=== PATIENT | female | born 1995 | race African-American/Black ===

== ENCOUNTER 2016-04-23 21:42 | Emergency (ER) | payer OTHER ==
[2016-04-23 22:06] VITALS: BP 160/60; PULSE 98; TEMP 98.4; BMI 39.6
--- NOTE | 2016-04-23 22:33 | PDOC ---
History of Present Illness <Dontae,Tutu - Last Filed: 04/23/16 23:59> - General History Source: Patient, Family (Mother), Other (Girlfriend) Exam Limitations: No Limitations - History of Present Illness Initial Comments: 04/23/16 23:49 The patient is a 20 year old female, with no significant past medical history, who presents to the emergency department with two main complaints, right sided tooth pain and an abscess to the left labia majora for the past 2 days. The patient states that she has no prior history of abscesses. The patient denies fever, chills or dysuria. The patients girlfriend is with her in the ED. Allergies: None reported. Past Surgical History: None reported. Social History: Current everyday smoker. Denies alcohol or drug use. PCP: Dr. Paul <Mahogany Anand - Last Filed: 04/24/16 00:07> - General Chief Complaint: Abscess Boil Stated Complaint: PAIN TO PUBIC AREA Time Seen by Provider: 04/23/16 22:29 Past History - Psycho/Social/Smoking Cessation Hx Anxiety: No Suicidal Ideation: No Smoking History: Current every day smoker Have you smoked in the past 12 months: Yes Number of Cigarettes Smoked Daily: 7 Information on smoking cessation initiated: No 'Breaking Loose' booklet given: 07/20/13 Hx Alcohol Use: No Substance Use Type: None <Tutu Diggs - Last Filed: 04/23/16 23:59> <Mahogany Anand - Last Filed: 04/24/16 00:07> - Past Medical History Allergies/Adverse Reactions: Allergies Allergy/AdvReac Type Severity Reaction Status Date / Time No Known Allergies Allergy Verified 04/23/16 22:00 Home Medications: Ambulatory Orders Clindamycin [Cleocin -] 300 mg PO Q6HPO #28 capsule 04/24/16 Review of Systems - Review of Systems Able to Perform ROS?: Yes Comments:: 04/23/16 23:41 CONSTITUTIONAL: No fever, no chills, no fatigue EYES: No visual changes ENT: +Tooth pain. No ear pain, no sore throat CARDIOVASCULAR: No chest pain, no palpitations RESPIRATORY: No cough, no SOB GI: No abdominal pain, no nausea, no vomiting, no constipation, no diarrhea GENITOURINARY: No dysuria, no frequency, no hematuria MUSKULOSKELETAL: No back pain, no joint pain, no myalgias SKIN: +Abscess to left labia majora. No rash NEURO: No headache <Mahogany Anand - Last Filed: 04/24/16 00:07> *Physical Exam - Vital Signs Last Vital Signs Temp Pulse Resp BP Pulse Ox 98.4 F 98 H 20 160/60 98 04/23/16 22:03 04/23/16 22:03 04/23/16 22:03 04/23/16 22:03 04/23/16 22:03 <Dontae,Boris - Last Filed: 04/23/16 23:59> - Vital Signs Last Vital Signs Temp Pulse Resp BP Pulse Ox 98.4 F 98 H 20 160/60 98 04/23/16 22:03 04/23/16 22:03 04/23/16 22:03 04/23/16 22:03 04/23/16 22:03 - Physical Exam Comments: 04/24/16 00:04 CONSTITUTIONAL: Well-appearing; well-nourished; in no apparent distress. HEAD: Normocephalic; atraumatic. EYES: PERRL; EOM intact. DENTAL: Tooth #2 tender to percussion without gingival induration or fluctuance. Tooth # 26 tender to percussion without gingival induration or fluctuance. ENMT: External appears normal; normal oropharynx. NECK: Supple; non-tender; no cervical lymphadenopathy. CARD: Normal S1, S2; no murmurs, rubs, or gallops. RESP: Normal chest excursion with respiration; breath sounds clear and equal bilaterally; no wheezes, rhonchi, or rales. ABD: Soft, non-distended; non-tender; no palpable organomegaly, no palpable hernias. EXT: Normal ROM in all four extremities; non-tender to palpation; distal pulses intact. SKIN: Warm, dry, no rash. MUNICIPAL CLERK: 4cm area of induration with central fluctuance, left external labial majora consistent with a cutaneous abscess. NEURO: No focal neurological deficiencies. <Mahogany Anand - Last Filed: 04/24/16 00:07> Procedures - Incision and Drainage I&D Site: Left: Other (Left labia majora) Betadine cleansed: Yes Anesthesia: 1% Lidocaine w/ Epi Volume(ml): 6 Blade Size: 11 Attempts: 1 Iodinated Packin/2 in Plain Packing: Yes Complications: none Dressing: Yes <Mahogany Anand - Last Filed: 04/24/16 00:07> ED Treatment Course - ADDITIONAL ORDERS Additional order review: Laboratory Results 04/23/16 14:30 Urine Color Ltyellow Urine Appearance Clear Urine pH 5.0 Ur Specific [place] 1.021 Urine Protein Negative Urine Glucose (UA) Negative Urine Ketones Negative Urine Blood Negative Urine Nitrite Negative Urine Bilirubin Negative Urine Urobilinogen Negative Ur Leukocyte Esterase 2+ H Urine RBC 3 Urine WBC 10 Ur Epithelial Cells Rare Urine HCG, Qual Negative <Mahogany Anand - Last Filed: 04/24/16 00:07> *DC/Admit/Observation/Transfer <Tutu Diggs - Last Filed: 04/23/16 23:59> - Attestations Scribe Attestion: 04/23/16 23:35 Documentation prepared by Mahogany Anand, acting as medical lab director for Tutu Diggs MD. <Mahogany Anand - Last Filed: 04/24/16 00:07> Diagnosis at time of Disposition: Toothache, Abscess of labia - Prescriptions Prescriptions: Clindamycin [Cleocin -] 300 mg PO Q6HPO #28 capsule - Referrals Referrals: Inna Paul [Primary Care Provider] - - Patient Instructions Printed Discharge Instructions: DI for Tooth Abscess, DI for Incision and Drainage of a Skin Abscess
[2016-04-23 23:22] LABS: URINE APPEARANCE CLEAR; URINE BILIRUBIN NEGATIVE (NEGATIVE); URINE BLOOD NEGATIVE (NEGATIVE); URINE COLOR LTYELLOW; URINE GLUCOSE (UA) NEGATIVE (NEGATIVE); URINE KETONE NEGATIVE (NEGATIVE); URINE NITRITE NEGATIVE (NEGATIVE); URINE PROTEIN NEGATIVE (NEGATIVE); URINE UROBILINOGEN NEGATIVE E.U./dl (0.2-1.0)
[2016-04-23 23:23] LABS: URINE LEUK ESTERASE 2+ (NEGATIVE)
[2016-04-23 23:26] LABS: URINE RBC 3 /hpf (0-3); URINE WBC 10 /hpf (3-5)
[2016-04-23] MEDS ORDERED: LIDOCAINE 1%/EPI 1:100000 (50 ML MULTI DOSE VIAL) ONE (23:33)
[2016-04-23] MEDS ORDERED: IBUPROFEN 600 MG TABLET (FP) PO ONE (23:42)
[2016-04-24] MEDS ORDERED: CLINDAMYCIN HCL 150 MG CAPSULE (FP) ONE (00:03)
[2016-04-24] MEDS ORDERED: CLINDAMYCIN HCL 300 MG CAPSULE PO ONE (00:03)
== END 2016-04-24 00:16 | disposition home or self-care (01) ==
LOC: JER 21:42
PROC: 0H9AXZZ Drainage of Inguinal Skin, External Approach (ICD-10-PCS; principal; 2016-04-23)
DX: F17.210 Nicotine dependence, cigarettes, uncomplicated (principal)
CPT/HCPCS: 81003; 81015; 84703; 87086; 99283-25

== ENCOUNTER 2016-04-26 18:42 | Emergency (ER) | payer OTHER ==
[2016-04-26 19:25] VITALS: BP 135/76; PULSE 88; TEMP 98.7; BMI 39.3
--- NOTE | 2016-04-26 19:38 | PDOC ---
History of Present Illness - General Chief Complaint: Revisit,Wound Recheck Stated Complaint: ABCESS BOIL/SUTURE REMOVAL Time Seen by Provider: 04/26/16 19:25 History Source: Patient Exam Limitations: No Limitations - History of Present Illness Initial Comments: 04/26/16 19:32 20-year-old female presents to the ED for wound check. Patient states had an I and D of her left labia with packing done and states since then area has been tender but much less than initially. Patient also denies fever, drainage from the area and states has been taking her antibiotics as prescribed. Patient denies dysuria, chills, and swelling. Severity: mild Past History - Past Medical History Allergies/Adverse Reactions: Allergies Allergy/AdvReac Type Severity Reaction Status Date / Time No Known Allergies Allergy Verified 04/26/16 19:25 Home Medications: Ambulatory Orders Clindamycin [Cleocin -] 300 mg PO Q6HPO #28 capsule 04/24/16 Ibuprofen [Motrin -] 600 mg PO QID #30 tablet 04/24/16 Other medical history: denies - Reproductive History LMP Normal: Yes Is Patient Now?: No - Psycho/Social/Smoking Cessation Hx Anxiety: No Suicidal Ideation: No Smoking History: Current every day smoker Have you smoked in the past 12 months: Yes Number of Cigarettes Smoked Daily: 10 Information on smoking cessation initiated: No 'Breaking Loose' booklet given: 07/20/13 Hx Alcohol Use: No Substance Use Type: None Patient Lives Alone: No Lives with/in: parents Review of Systems - Review of Systems Able to Perform ROS?: Yes Constitutional: No: Symptoms Reported HEENTM: No: Symptoms Reported ABD/GI: No: Symptoms Reported : No: Symptoms Reported Musculoskeletal: No: Symptoms Reported Integumentary: Yes: Lumps Neurological: No: Symptoms reported *Physical Exam - Vital Signs Last Vital Signs Temp Pulse Resp BP Pulse Ox 98.7 F 88 20 135/76 100 04/26/16 19:21 04/26/16 19:21 04/26/16 19:21 04/26/16 19:21 04/26/16 19:21 - Physical Exam General Appearance: Yes: Nourished, Appropriately Dressed. No: Apparent Distress Female Pelvic Exam: positive: other (packing removed from left labia. no drainage noted with pressure. Firm area surrounding incision noted but no palpable fluctuance or increased warmth) Medical Decision Making - Medical Decision Making 04/26/16 19:35 Patient here for wound check secondary to left labia incision and drainage done 2 days ago. Area appears to be healing. Patient recommended to continue hot soaks and continue antibiotics *DC/Admit/Observation/Transfer Diagnosis at time of Disposition: Wound check, abscess - Discharge Dispostion Disposition: HOME Condition at time of disposition: Good - Patient Instructions Printed Discharge Instructions: DI for Incision and Drainage of a Skin Abscess Additional Instructions: Continue to provide hot soaks 4 times a day for at least 15 minutes which can include a hot shower and hot soaks. Continue your antibiotics until completed. Return to the ED if you develop a fever, have increased swelling, or drainage from site.
== END 2016-04-26 19:40 | disposition home or self-care (01) ==
LOC: JERFT 18:42
DX: Z48.01 Encounter for change or removal of surgical wound dressing (principal)
CPT/HCPCS: 99281-25

== ENCOUNTER 2017-06-04 11:11 | Inpatient (IN) | payer OTHER ==
[2017-06-04 12:00] VITALS: BMI 40.1
--- NOTE | 2017-06-04 14:05 | HP ---
COWS - Scale Resting Pulse: 1= [place] 81-100 Sweatin=Flushed/Facial Moisture Restless Observation: 3= Extraneous Movement Pupil Size: 2= Moderately Dilated Bone or Joint Aches: 2= Severe Diffuse Aches Runny Nose/ Eye Tearin= Runny Nose/Eyes GI Upset > 30mins: 3= Vomiting/Diarrhea Tremor Observation: 2= Slight Tremor Visible Yawning Observation: 2= >3x During Session Anxiety or Irritability: 2=Irritable/Anxious Goose Flesh Skin: 0=Smooth Skin COWS Score: 21 Admission ROS BHS - HPI Chief Complaint: i need help to stop using oxycodone Allergies/Adverse Reactions: Allergies Allergy/AdvReac Type Severity Reaction Status Date / Time No Known Allergies Allergy Verified 06/04/17 13:49 History of Present Illness: this 23 years old female with oxycodone and percocet,seeking detox,never been in detox before nicotine dependence stated need help to stop drinking Exam Limitations: No Limitations - Ebola screening Have you traveled outside of the country in the last 21 days: No Have you been sick,other than usual withdrawal symptoms: No - Review of Systems Constitutional: Chills, Diaphoresis, Loss of Appetite, Malaise, Night Sweats, Changes in sleep, Weakness EENT: reports: Tearing, Nose Congestion Respiratory: reports: No Symptoms reported Cardiac: reports: No Symptoms Reported, Palpitations GI: reports: Diarrhea, Nausea, Vomiting, Abdominal cramping : reports: No Symptoms Reported Musculoskeletal: reports: Back Pain, Joint Pain, Muscle Pain, Joint Stiffness Integumentary: reports: Dryness Endocrine: reports: No Symptoms Reported Hematology: reports: No Symptoms Reported Psychiatric: reports: No Sypmtoms Reported Patient History - Patient Medical History Hx Anemia: No Hx Asthma: No Hx Chronic Obstructive Pulmonary Disease (COPD): No Hx Cancer: No Hx Cardiac Disorders: No Hx Congestive Heart Failure: No Hx Hypertension: No Hx Hypercholesterolemia: No Hx Pacemaker: No HX Cerebrovascular Accident: No Hx Seizures: No Hx Dementia: No Hx Diabetes: No Hx Gastrointestinal Disorders: No Hx Liver Disease: No Hx Genitourinary Disorders: No Hx Sexually Transmitted Disorders: No Hx Renal Disease (ESRD): No Hx Thyroid Disease: No Hx Human Immunodeficiency Virus (HIV): No (last 05/30 negative) Hx Hepatitis C: No Hx Depression: Yes Hx Suicide Attempt: No Hx Bipolar Disorder: No Hx Schizophrenia: No Other Medical History: no suicidal,no homicidal - Patient Surgical History Past Surgical History: No - Reproductive History Patient is a Female of Child Bearing Age (11 -55 yrs old): Yes Patient : No - Smoking Cessation Smoking history: Current every day smoker Have you smoked in the past 12 months: Yes Aproximately how many cigarettes per day: 10 Cigars Per Day: 0 Hx Chewing Tobacco Use: No Initiated information on smoking cessation: Yes 'Breaking Loose' booklet given: 06/04/17 - Substance & Tx. History Hx Alcohol Use: No Hx Substance Use: Yes Substance Use Type: Opiates Hx Substance Use Treatment: No - Substances Abused oxycodone Route: Oral Frequency: Daily Amount used: 2-3 80mg pills Age of first use: 19 Date of Last Use: 06/04/17 Family Disease History - Family Disease History Family History: Denies Admission Physical Exam [facility] - Vital Signs Vital Signs: Vital Signs - 24 hr 06/04/17 11:51 Temperature 98.1 F Pulse Rate 100 H Respiratory 18 Rate Blood Pressure 122/75 - Physical General Appearance: Yes: Moderate Distress, Tremorous, Irritable, Sweating, Anxious HEENTM: Yes: Normal ENT Inspection, LENY, Pharynx Normal, Nasal Congestion Respiratory: Yes: Within Normal Limits, Lungs Clear, Normal Breath Sounds, No Respiratory Distress Neck: Yes: Within Normal Limits, Supple, Trachea in good position Breast: Yes: Breast Exam Deferred Cardiology: Yes: Within Normal Limits, Regular Rhythm, Regular Rate, S1, S2 Abdominal: Yes: Within Normal Limits, Normal Bowel Sounds, Non Tender, Flat, Soft Genitourinary: Yes: Within Normal Limits Musculoskeletal: Yes: full range of Motion, Back pain, Muscle Pain Extremities: Yes: Within Normal Limits, Normal Range of Motion, Tremors Neurological: Yes: metal cutter II-XII NML intact, Alert, Motor Strength 5/5 Integumentary: Yes: Dry Lymphatic: Yes: Within Normal Limits - Diagnostic (1) Opioid dependence with withdrawal Current Visit: Yes Status: Acute (2) Nicotine dependence Current Visit: Yes Status: Acute Cleared for Admission [facility] - Detox or Rehab [facility] Level of Care: Medically Managed Detox Regimen/Protocol: Methadone [facility] Breath Alcohol Content Breath Alcohol Content: 0 Urine Pregancy Test - Result Urine Test Results: Negative- NO Line Present Urine Drug Screen - Results Drug Screen Negative: No Urine Drug Screen Results: OPI-Opiates, TCA-Tricyclic Antidepress, OXY-Oxycodone
[2017-06-04] MEDS ORDERED: MAGNESIUM HYDROX 2400MG/30ML ORAL SUSPENSION 30 ML CUP PO PRN (14:15)
[2017-06-04] MEDS ORDERED: MENTHOL/PHENOL 1 EACH UD MM PRN (14:15)
[2017-06-04] MEDS ORDERED: LOPERAMIDE HCL 2 MG CAPSULE PO PRN (14:15)
[2017-06-04] MEDS ORDERED: guaiFENesin/D-METHORPHAN HB 10 ML UNIT-DOSE CUPS PO PRN (14:15)
[2017-06-04] MEDS ORDERED: MAG HYDROX/AL HYDROX/SIMETH 30 ML UNIT-DOSE CUP PO PRN (14:15)
[2017-06-04] MEDS ORDERED: MAGNESIUM CITRATE 300 ML BOTTLE PO PRN (14:15)
[2017-06-04] MEDS ORDERED: IBUPROFEN 400 MG TABLET (FP) PO PRN (14:15)
[2017-06-04] MEDS ORDERED: P-EPHED 60MG/TRIPROLIDI 2.5MG TABLET PO PRN (14:15)
[2017-06-04] MEDS ORDERED: ACETAMINOPHEN 325 MG TABLET (FP) PO PRN (14:15)
[2017-06-04] MEDS ORDERED: METHADONE HCL 10 MG TABLET (FOR DETOX USE ONLY) PO ONE ×2 (15:15→23:00)
[2017-06-04] MEDS ORDERED: METHADONE HCL 10 MG TABLET (FOR DETOX USE ONLY) ONE (18:44)
[2017-06-04] MEDS: diazePAM 5 MG TABLET PO PRN (18:52)
[2017-06-04 21:55] LABS: URINE APPEARANCE TURBID; URINE BILIRUBIN NEGATIVE (NEGATIVE); URINE BLOOD 3+ (NEGATIVE); URINE COLOR YELLOW; URINE GLUCOSE (UA) NEGATIVE (NEGATIVE); URINE KETONE TRACE (NEGATIVE); URINE LEUK ESTERASE 1+ (NEGATIVE); URINE NITRITE NEGATIVE (NEGATIVE); URINE PROTEIN 1+ (NEGATIVE)
[2017-06-04] MEDS: THIAMINE HCL 100 MG TABLET (FP) PO SCH (22:16)
[2017-06-04] MEDS: hydrOXYzine PAMOATE 50 MG CAPSULE (FP) PO PRN (22:16)
[2017-06-04 22:40] LABS: EPI CELLS RARE /HPF (FEW); URINE MUCUS RARE
[2017-06-05] MEDS: diazePAM 5 MG TABLET PO PRN ×4 (05:40→21:49)
[2017-06-05] MEDS ORDERED: METHADONE HCL 10 MG TABLET (FOR DETOX USE ONLY) PO ONE (10:00)
[2017-06-05] MEDS ORDERED: NORETHINDRONE E ESTRADIOL IRON PO SCH (10:00)
[2017-06-05 10:11] LABS: CHLORIDE 105 mmol/L (98-107); POTASSIUM 4.4 mmol/L (3.5-5.1); SODIUM 138 mmol/L (136-145)
[2017-06-05 10:23] LABS: ALK PHOS 64 U/L (45-117); ANION GAP 7 (8-16); BILIRUBIN,TOTAL 0.7 mg/dL (0.2-1.0); BLOOD UREA NITROGEN 9 mg/dL (7-18); CALCIUM 8.4 mg/dL (8.5-10.1); CO2 26 mmol/L (21-32); CREATININE 0.9 mg/dL (0.55-1.02); GLUCOSE,RANDOM 85 mg/dL (74-106); SGOT/AST 11 U/L (15-37); SGPT/ALT 15 U/L (12-78); TOT PROT 7.9 g/dl (6.4-8.2)
[2017-06-05] MEDS: PRENATAL VITAMINS W/ FOLIC ACID TABLET (FP) PO SCH (11:00)
[2017-06-05] MEDS: NICOTINE POLACRILEX 2 MG GUM BUC PRN ×5 (11:04→21:50)
[2017-06-05 11:06] LABS: SICKLE CELL SCREEN POSITIVE (NEGATIVE)
[2017-06-05 11:52] LABS: HEMATOCRIT 30.3 % (32.4-45.2); HEMOGLOBIN 7.6 GM/dL (10.7-15.3); MCHC 25.2 g/dl (32.0-36.0); MEAN CELL VOLUME 50.4 fl (80-96); MEAN PLT VOLUME 9.3 fl (7.5-11.1); PLATELET COUNT 335 K/MM3 (134-434); RDW 24.7 % (11.6-15.6); WHITE BLOOD COUNT 11.2 K/mm3 (4.0-10.0)
[2017-06-05 11:53] LABS: MCH 12.7 pg (25.7-33.7)
[2017-06-05] MEDS: NORETHINDRONE E ESTRADIOL IRON PO SCH (17:48)
--- NOTE | 2017-06-05 21:40 | PN ---
BHS COWS - Scale Resting Pulse: 1= [place] 81-100 Sweatin=Flushed/Facial Moisture Restless Observation: 3= Extraneous Movement Pupil Size: 0= Normal to Room Light Bone or Joint Aches: 1= Mild Discomfort Runny Nose/ Eye Tearin= Nasal Congestion GI Upset > 30mins: 1= Stomach Cramp Tremor Observation of Outstretched Hands: 2= Slight Tremor Visible Yawning Observation: 0= None Anxiety or Irritability: 2=Irritable/Anxious Goose Flesh Skin: 0=Smooth Skin COWS Score: 13 BHS Progress Note (SOAP) Subjective: anxious shakes Objective: 06/05/17 21:38 A & o x 3 Ambulating steadily Vital Signs Temperature 98.2 F 06/05/17 18:19 Pulse Rate 88 06/05/17 18:19 Respiratory Rate 18 06/05/17 18:19 Blood Pressure 122/60 06/05/17 18:19 O2 Sat by Pulse Oximetry (%) Laboratory Last Values WBC 11.2 K/mm3 (4.0-10.0) H 06/05/17 06:20 RBC 6.00 M/mm3 (3.60-5.2) H 06/05/17 06:20 Hgb 7.6 GM/dL (10.7-15.3) L D 06/05/17 06:20 Hct 30.3 % (32.4-45.2) L 06/05/17 06:20 MCV 50.4 fl (80-96) L 06/05/17 06:20 MCH 12.7 pg (25.7-33.7) L 06/05/17 06:20 MCHC 25.2 g/dl (32.0-36.0) L 06/05/17 06:20 RDW 24.7 % (11.6-15.6) H 06/05/17 06:20 Plt Count 335 K/MM3 (134-434) D 06/05/17 06:20 MPV 9.3 fl (7.5-11.1) 06/05/17 06:20 Sickle Cell Screen Positive (NEGATIVE) 06/05/17 06:20 Hemoglobin A Cancelled 06/05/17 12:00 Hemoglobin A2 Cancelled 06/05/17 12:00 Hemoglobin C Cancelled 06/05/17 12:00 Hemoglobin S Cancelled 06/05/17 12:00 Variant Hemoglobin Cancelled 06/05/17 12:00 Hemoglobin Interpret Cancelled 06/05/17 12:00 Maternal Rh Cancelled 06/05/17 12:00 Hemoglobin Solubility Cancelled 06/05/17 12:00 Sodium 138 mmol/L (136-145) 06/05/17 06:20 Potassium 4.4 mmol/L (3.5-5.1) 06/05/17 06:20 Chloride 105 mmol/L (98-107) 06/05/17 06:20 Carbon Dioxide 26 mmol/L (21-32) 06/05/17 06:20 Anion Gap 7 (8-16) L 06/05/17 06:20 BUN 9 mg/dL (7-18) 06/05/17 06:20 Creatinine 0.9 mg/dL (0.55-1.02) 06/05/17 06:20 Creat Clearance w eGFR > 60 (>60) 06/05/17 06:20 Random Glucose 85 mg/dL (74-106) 06/05/17 06:20 Calcium 8.4 mg/dL (8.5-10.1) L 06/05/17 06:20 Total Bilirubin 0.7 mg/dL (0.2-1.0) D 06/05/17 06:20 AST 11 U/L (15-37) L 06/05/17 06:20 ALT 15 U/L (12-78) 06/05/17 06:20 Alkaline Phosphatase 64 U/L (45-117) 06/05/17 06:20 Total Protein 7.9 g/dl (6.4-8.2) 06/05/17 06:20 Albumin 4.0 g/dl (3.4-5.0) 06/05/17 06:20 Urine Color Yellow 06/04/17 21:00 Urine Appearance Turbid 06/04/17 21:00 Urine pH 5.0 (5.0-8.0) 06/04/17 21:00 Ur Specific [place] 1.029 (1.001-1.035) 06/04/17 21:00 Urine Protein 1+ (NEGATIVE) H 06/04/17 21:00 Urine Glucose (UA) Negative (NEGATIVE) 06/04/17 21:00 Urine Ketones Trace (NEGATIVE) H 06/04/17 21:00 Urine Blood 3+ (NEGATIVE) H 06/04/17 21:00 Urine Nitrite Negative (NEGATIVE) 06/04/17 21:00 Urine Bilirubin Negative (NEGATIVE) 06/04/17 21:00 Urine Urobilinogen 2.0 mg/dL (0.2-1.0) H 06/04/17 21:00 Ur Leukocyte Esterase 1+ (NEGATIVE) H 06/04/17 21:00 Urine WBC (Auto) 20 /hpf (3-5) 06/04/17 21:00 Urine RBC (Auto) 26 /hpf (0-3) 06/04/17 21:00 Ur Epithelial Cells Rare /HPF (FEW) 06/04/17 21:00 Urine Mucus Rare 06/04/17 21:00 RPR Titer Nonreactive (NONREACTIVE) 06/05/17 06:20 noted Assessment: 06/05/17 21:39 withdrawal sx Plan: continue detox iron supplements
[2017-06-05] MEDS: THIAMINE HCL 100 MG TABLET (FP) PO SCH (21:49)
[2017-06-05] MEDS: FERROUS SO4 325 MG TABLET (FP) PO SCH (21:49)
[2017-06-05] MEDS: hydrOXYzine PAMOATE 50 MG CAPSULE (FP) PO PRN (22:53)
[2017-06-06] MEDS: diazePAM 5 MG TABLET PO PRN ×5 (05:47→22:40)
[2017-06-06] MEDS ORDERED: METHADONE HCL 5 MG TABLET (FOR DETOX USE ONLY) PO ONE (10:00)
--- NOTE | 2017-06-06 10:09 | PN ---
S COWS - Scale Resting Pulse: 1= [place] 81-100 Sweatin= Chills/Flushing Restless Observation: 1= Difficult to Sit Still Pupil Size: 1= Pupils >than Normal Bone or Joint Aches: 1= Mild Discomfort Runny Nose/ Eye Tearin= Nasal Congestion GI Upset > 30mins: 1= Stomach Cramp Tremor Observation of Outstretched Hands: 1= Tremor [place], Not Seen Yawning Observation: 2= >3x During Session Anxiety or Irritability: 1=Feels Anxious/Irritable Goose Flesh Skin: 0=Smooth Skin COWS Score: 11 S Progress Note (SOAP) Subjective: joint aches sweat restlessness irritable GI upset Objective: 06/06/17 10:07 Vital Signs Temperature 98.1 F 06/06/17 06:00 Pulse Rate 82 06/06/17 06:00 Respiratory Rate 18 06/06/17 06:00 Blood Pressure 138/78 06/06/17 06:00 O2 Sat by Pulse Oximetry (%) Laboratory Last Values WBC 11.2 K/mm3 (4.0-10.0) H 06/05/17 06:20 RBC 6.00 M/mm3 (3.60-5.2) H 06/05/17 06:20 Hgb 7.6 GM/dL (10.7-15.3) L D 06/05/17 06:20 Hct 30.3 % (32.4-45.2) L 06/05/17 06:20 MCV 50.4 fl (80-96) L 06/05/17 06:20 MCH 12.7 pg (25.7-33.7) L 06/05/17 06:20 MCHC 25.2 g/dl (32.0-36.0) L 06/05/17 06:20 RDW 24.7 % (11.6-15.6) H 06/05/17 06:20 Plt Count 335 K/MM3 (134-434) D 06/05/17 06:20 MPV 9.3 fl (7.5-11.1) 06/05/17 06:20 Sickle Cell Screen Positive (NEGATIVE) 06/05/17 06:20 Hemoglobin A Cancelled 06/05/17 12:00 Hemoglobin A2 Cancelled 06/05/17 12:00 Hemoglobin C Cancelled 06/05/17 12:00 Hemoglobin S Cancelled 06/05/17 12:00 Variant Hemoglobin Cancelled 06/05/17 12:00 Hemoglobin Interpret Cancelled 06/05/17 12:00 Maternal Rh Cancelled 06/05/17 12:00 Hemoglobin Solubility Cancelled 06/05/17 12:00 Sodium 138 mmol/L (136-145) 06/05/17 06:20 Potassium 4.4 mmol/L (3.5-5.1) 06/05/17 06:20 Chloride 105 mmol/L (98-107) 06/05/17 06:20 Carbon Dioxide 26 mmol/L (21-32) 06/05/17 06:20 Anion Gap 7 (8-16) L 06/05/17 06:20 BUN 9 mg/dL (7-18) 06/05/17 06:20 Creatinine 0.9 mg/dL (0.55-1.02) 06/05/17 06:20 Creat Clearance w eGFR > 60 (>60) 06/05/17 06:20 Random Glucose 85 mg/dL (74-106) 06/05/17 06:20 Calcium 8.4 mg/dL (8.5-10.1) L 06/05/17 06:20 Total Bilirubin 0.7 mg/dL (0.2-1.0) D 06/05/17 06:20 AST 11 U/L (15-37) L 06/05/17 06:20 ALT 15 U/L (12-78) 06/05/17 06:20 Alkaline Phosphatase 64 U/L (45-117) 06/05/17 06:20 Total Protein 7.9 g/dl (6.4-8.2) 06/05/17 06:20 Albumin 4.0 g/dl (3.4-5.0) 06/05/17 06:20 Urine Color Yellow 06/04/17 21:00 Urine Appearance Turbid 06/04/17 21:00 Urine pH 5.0 (5.0-8.0) 06/04/17 21:00 Ur Specific [place] 1.029 (1.001-1.035) 06/04/17 21:00 Urine Protein 1+ (NEGATIVE) H 06/04/17 21:00 Urine Glucose (UA) Negative (NEGATIVE) 06/04/17 21:00 Urine Ketones Trace (NEGATIVE) H 06/04/17 21:00 Urine Blood 3+ (NEGATIVE) H 06/04/17 21:00 Urine Nitrite Negative (NEGATIVE) 06/04/17 21:00 Urine Bilirubin Negative (NEGATIVE) 06/04/17 21:00 Urine Urobilinogen 2.0 mg/dL (0.2-1.0) H 06/04/17 21:00 Ur Leukocyte Esterase 1+ (NEGATIVE) H 06/04/17 21:00 Urine WBC (Auto) 20 /hpf (3-5) 06/04/17 21:00 Urine RBC (Auto) 26 /hpf (0-3) 06/04/17 21:00 Ur Epithelial Cells Rare /HPF (FEW) 06/04/17 21:00 Urine Mucus Rare 06/04/17 21:00 RPR Titer Nonreactive (NONREACTIVE) 06/05/17 06:20 lab noted Assessment: 06/06/17 10:08 withdrawal sx Plan: continue detox
[2017-06-06] MEDS: FERROUS SO4 325 MG TABLET (FP) PO SCH (10:54)
[2017-06-06] MEDS: PRENATAL VITAMINS W/ FOLIC ACID TABLET (FP) PO SCH (10:54)
[2017-06-06] MEDS: NICOTINE POLACRILEX 2 MG GUM BUC PRN ×4 (10:57→17:44)
[2017-06-06] MEDS: NICOTINE 14 MG/24 HOURS TOPICAL PATCH TD SCH (12:19)
[2017-06-06] MEDS: NORETHINDRONE E ESTRADIOL IRON PO SCH (17:43)
[2017-06-06] MEDS: THIAMINE HCL 100 MG TABLET (FP) PO SCH (22:40)
[2017-06-06] MEDS: hydrOXYzine PAMOATE 50 MG CAPSULE (FP) PO PRN (22:42)
[2017-06-07] MEDS: diazePAM 5 MG TABLET PO PRN ×2 (06:48→10:48)
--- NOTE | 2017-06-07 09:52 | PN ---
BHS Progress Note (SOAP) Subjective: joint aches stuffy nose irritable restlessness sweat Objective: 06/07/17 09:51 Vital Signs Temperature 98.4 F 06/07/17 06:24 Pulse Rate 81 06/07/17 06:24 Respiratory Rate 18 06/07/17 06:24 Blood Pressure 100/54 06/07/17 06:24 O2 Sat by Pulse Oximetry (%) Laboratory Last Values WBC 11.2 K/mm3 (4.0-10.0) H 06/05/17 06:20 RBC 6.00 M/mm3 (3.60-5.2) H 06/05/17 06:20 Hgb 7.6 GM/dL (10.7-15.3) L D 06/05/17 06:20 Hct 30.3 % (32.4-45.2) L 06/05/17 06:20 MCV 50.4 fl (80-96) L 06/05/17 06:20 MCH 12.7 pg (25.7-33.7) L 06/05/17 06:20 MCHC 25.2 g/dl (32.0-36.0) L 06/05/17 06:20 RDW 24.7 % (11.6-15.6) H 06/05/17 06:20 Plt Count 335 K/MM3 (134-434) D 06/05/17 06:20 MPV 9.3 fl (7.5-11.1) 06/05/17 06:20 Sickle Cell Screen Positive (NEGATIVE) 06/05/17 06:20 Hemoglobin A Cancelled 06/05/17 12:00 Hemoglobin A2 Cancelled 06/05/17 12:00 Hemoglobin C Cancelled 06/05/17 12:00 Hemoglobin S Cancelled 06/05/17 12:00 Variant Hemoglobin Cancelled 06/05/17 12:00 Hemoglobin Interpret Cancelled 06/05/17 12:00 Maternal Rh Cancelled 06/05/17 12:00 Hemoglobin Solubility Cancelled 06/05/17 12:00 Sodium 138 mmol/L (136-145) 06/05/17 06:20 Potassium 4.4 mmol/L (3.5-5.1) 06/05/17 06:20 Chloride 105 mmol/L (98-107) 06/05/17 06:20 Carbon Dioxide 26 mmol/L (21-32) 06/05/17 06:20 Anion Gap 7 (8-16) L 06/05/17 06:20 BUN 9 mg/dL (7-18) 06/05/17 06:20 Creatinine 0.9 mg/dL (0.55-1.02) 06/05/17 06:20 Creat Clearance w eGFR > 60 (>60) 06/05/17 06:20 Random Glucose 85 mg/dL (74-106) 06/05/17 06:20 Calcium 8.4 mg/dL (8.5-10.1) L 06/05/17 06:20 Total Bilirubin 0.7 mg/dL (0.2-1.0) D 06/05/17 06:20 AST 11 U/L (15-37) L 06/05/17 06:20 ALT 15 U/L (12-78) 06/05/17 06:20 Alkaline Phosphatase 64 U/L (45-117) 06/05/17 06:20 Total Protein 7.9 g/dl (6.4-8.2) 06/05/17 06:20 Albumin 4.0 g/dl (3.4-5.0) 06/05/17 06:20 Urine Color Yellow 06/04/17 21:00 Urine Appearance Turbid 06/04/17 21:00 Urine pH 5.0 (5.0-8.0) 06/04/17 21:00 Ur Specific [place] 1.029 (1.001-1.035) 06/04/17 21:00 Urine Protein 1+ (NEGATIVE) H 06/04/17 21:00 Urine Glucose (UA) Negative (NEGATIVE) 06/04/17 21:00 Urine Ketones Trace (NEGATIVE) H 06/04/17 21:00 Urine Blood 3+ (NEGATIVE) H 06/04/17 21:00 Urine Nitrite Negative (NEGATIVE) 06/04/17 21:00 Urine Bilirubin Negative (NEGATIVE) 06/04/17 21:00 Urine Urobilinogen 2.0 mg/dL (0.2-1.0) H 06/04/17 21:00 Ur Leukocyte Esterase 1+ (NEGATIVE) H 06/04/17 21:00 Urine WBC (Auto) 20 /hpf (3-5) 06/04/17 21:00 Urine RBC (Auto) 26 /hpf (0-3) 06/04/17 21:00 Ur Epithelial Cells Rare /HPF (FEW) 06/04/17 21:00 Urine Mucus Rare 06/04/17 21:00 RPR Titer Nonreactive (NONREACTIVE) 06/05/17 06:20 lab noted Assessment: 06/07/17 09:52 withdrawal sx Plan: continue detox
[2017-06-07] MEDS ORDERED: METHADONE HCL 5 MG TABLET (FOR DETOX USE ONLY) PO ONE (10:00)
[2017-06-07] MEDS: PRENATAL VITAMINS W/ FOLIC ACID TABLET (FP) PO SCH (10:48)
[2017-06-07] MEDS: NICOTINE 14 MG/24 HOURS TOPICAL PATCH TD SCH (10:49)
[2017-06-07] MEDS: FERROUS SO4 325 MG TABLET (FP) PO SCH (11:26)
[2017-06-07] MEDS: hydrOXYzine PAMOATE 50 MG CAPSULE (FP) PO PRN ×3 (14:11→22:33)
[2017-06-07] MEDS: NICOTINE POLACRILEX 2 MG GUM BUC PRN ×2 (14:12→17:09)
[2017-06-07] MEDS: NORETHINDRONE E ESTRADIOL IRON PO SCH (17:09)
[2017-06-07] MEDS: THIAMINE HCL 100 MG TABLET (FP) PO SCH (22:33)
[2017-06-08] MEDS: hydrOXYzine PAMOATE 50 MG CAPSULE (FP) PO PRN ×5 (05:39→22:20)
[2017-06-08] MEDS ORDERED: METHADONE HCL 10 MG TABLET (FOR DETOX USE ONLY) PO ONE (10:00)
--- NOTE | 2017-06-08 10:25 | PN ---
[facility] Progress Note (SOAP) Subjective: ALERT ORIENTED X 3 TOLERATES FOOD AND FLUID WELL DENIES GENERAL BODY ACHE, NO TREMOR LESS SWEAT Objective: 06/08/17 10:23 Vital Signs Temperature 97.9 F 06/08/17 10:07 Pulse Rate 85 06/08/17 10:07 Respiratory Rate 20 06/08/17 10:07 Blood Pressure 110/61 06/08/17 10:07 O2 Sat by Pulse Oximetry (%) Laboratory Last Values WBC 11.2 K/mm3 (4.0-10.0) H 06/05/17 06:20 RBC 6.00 M/mm3 (3.60-5.2) H 06/05/17 06:20 Hgb 7.6 GM/dL (10.7-15.3) L D 06/05/17 06:20 Hct 30.3 % (32.4-45.2) L 06/05/17 06:20 MCV 50.4 fl (80-96) L 06/05/17 06:20 MCH 12.7 pg (25.7-33.7) L 06/05/17 06:20 MCHC 25.2 g/dl (32.0-36.0) L 06/05/17 06:20 RDW 24.7 % (11.6-15.6) H 06/05/17 06:20 Plt Count 335 K/MM3 (134-434) D 06/05/17 06:20 MPV 9.3 fl (7.5-11.1) 06/05/17 06:20 Sickle Cell Screen Positive (NEGATIVE) 06/05/17 06:20 Hemoglobin A Cancelled 06/05/17 12:00 Hemoglobin A2 Cancelled 06/05/17 12:00 Hemoglobin C Cancelled 06/05/17 12:00 Hemoglobin S Cancelled 06/05/17 12:00 Variant Hemoglobin Cancelled 06/05/17 12:00 Hemoglobin Interpret Cancelled 06/05/17 12:00 Maternal Rh Cancelled 06/05/17 12:00 Hemoglobin Solubility Cancelled 06/05/17 12:00 Sodium 138 mmol/L (136-145) 06/05/17 06:20 Potassium 4.4 mmol/L (3.5-5.1) 06/05/17 06:20 Chloride 105 mmol/L (98-107) 06/05/17 06:20 Carbon Dioxide 26 mmol/L (21-32) 06/05/17 06:20 Anion Gap 7 (8-16) L 06/05/17 06:20 BUN 9 mg/dL (7-18) 06/05/17 06:20 Creatinine 0.9 mg/dL (0.55-1.02) 06/05/17 06:20 Creat Clearance w eGFR > 60 (>60) 06/05/17 06:20 Random Glucose 85 mg/dL (74-106) 06/05/17 06:20 Calcium 8.4 mg/dL (8.5-10.1) L 06/05/17 06:20 Total Bilirubin 0.7 mg/dL (0.2-1.0) D 06/05/17 06:20 AST 11 U/L (15-37) L 06/05/17 06:20 ALT 15 U/L (12-78) 06/05/17 06:20 Alkaline Phosphatase 64 U/L (45-117) 06/05/17 06:20 Total Protein 7.9 g/dl (6.4-8.2) 06/05/17 06:20 Albumin 4.0 g/dl (3.4-5.0) 06/05/17 06:20 Urine Color Yellow 06/04/17 21:00 Urine Appearance Turbid 06/04/17 21:00 Urine pH 5.0 (5.0-8.0) 06/04/17 21:00 Ur Specific [place] 1.029 (1.001-1.035) 06/04/17 21:00 Urine Protein 1+ (NEGATIVE) H 06/04/17 21:00 Urine Glucose (UA) Negative (NEGATIVE) 06/04/17 21:00 Urine Ketones Trace (NEGATIVE) H 06/04/17 21:00 Urine Blood 3+ (NEGATIVE) H 06/04/17 21:00 Urine Nitrite Negative (NEGATIVE) 06/04/17 21:00 Urine Bilirubin Negative (NEGATIVE) 06/04/17 21:00 Urine Urobilinogen 2.0 mg/dL (0.2-1.0) H 06/04/17 21:00 Ur Leukocyte Esterase 1+ (NEGATIVE) H 06/04/17 21:00 Urine WBC (Auto) 20 /hpf (3-5) 06/04/17 21:00 Urine RBC (Auto) 26 /hpf (0-3) 06/04/17 21:00 Ur Epithelial Cells Rare /HPF (FEW) 06/04/17 21:00 Urine Mucus Rare 06/04/17 21:00 RPR Titer Nonreactive (NONREACTIVE) 06/05/17 06:20 LAB NOTED Assessment: 06/08/17 10:23 MILD WITHDRAWAL SX Plan: MEDICALLY SUPERVISED DETOX
[2017-06-08] MEDS: PRENATAL VITAMINS W/ FOLIC ACID TABLET (FP) PO SCH (10:46)
[2017-06-08] MEDS: FERROUS SO4 325 MG TABLET (FP) PO SCH (10:46)
[2017-06-08] MEDS: NICOTINE 14 MG/24 HOURS TOPICAL PATCH TD SCH (10:46)
--- NOTE | 2017-06-08 13:36 | EKG ---
Test Reason : Blood Pressure : / mmHG Vent. Rate : 094 BPM Atrial Rate : 094 BPM P-R Int : 180 ms QRS Dur : 090 ms QT Int : 370 ms P-R-T Axes : 065 067 059 degrees QTc Int : 462 ms NORMAL SINUS RHYTHM NORMAL ECG NO PREVIOUS ECGS AVAILABLE Confirmed by MD Bar, Scott ([id number]) on 06/08/2017 1:36:14 PM Referred By: Confirmed By:Scott Dinero MD
[2017-06-08] MEDS: NICOTINE POLACRILEX 2 MG GUM BUC PRN (17:25)
[2017-06-08] MEDS: NORETHINDRONE E ESTRADIOL IRON PO SCH (17:25)
[2017-06-08] MEDS: THIAMINE HCL 100 MG TABLET (FP) PO SCH (22:19)
[2017-06-09] MEDS: hydrOXYzine PAMOATE 50 MG CAPSULE (FP) PO PRN (05:17)
[2017-06-09] MEDS ORDERED: METHADONE HCL 5 MG TABLET (FOR DETOX USE ONLY) PO ONE (06:00)
[2017-06-09 06:32] VITALS: BP 115/69; PULSE 82; TEMP 97.7
--- NOTE | 2017-06-09 09:22 | DS ---
[facility] Detox Discharge Summary Admission Date: 06/04/17 Discharge Date: 06/09/17 - History Present History: Opioid Dependence - Physical Exam Results Vital Signs: Vital Signs Temperature 97.7 F 06/09/17 05:30 Pulse Rate 82 06/09/17 05:30 Respiratory Rate 18 06/09/17 05:30 Blood Pressure 115/69 06/09/17 05:30 O2 Sat by Pulse Oximetry (%) Pertinent Admission Physical Exam Findings: WITHDRAWAL SX Laboratory Last Values WBC 11.2 K/mm3 (4.0-10.0) H 06/05/17 06:20 RBC 6.00 M/mm3 (3.60-5.2) H 06/05/17 06:20 Hgb 7.6 GM/dL (10.7-15.3) L D 06/05/17 06:20 Hct 30.3 % (32.4-45.2) L 06/05/17 06:20 MCV 50.4 fl (80-96) L 06/05/17 06:20 MCH 12.7 pg (25.7-33.7) L 06/05/17 06:20 MCHC 25.2 g/dl (32.0-36.0) L 06/05/17 06:20 RDW 24.7 % (11.6-15.6) H 06/05/17 06:20 Plt Count 335 K/MM3 (134-434) D 06/05/17 06:20 MPV 9.3 fl (7.5-11.1) 06/05/17 06:20 Sickle Cell Screen Positive (NEGATIVE) 06/05/17 06:20 Hemoglobin A Cancelled 06/05/17 12:00 Hemoglobin A2 Cancelled 06/05/17 12:00 Hemoglobin C Cancelled 06/05/17 12:00 Hemoglobin S Cancelled 06/05/17 12:00 Variant Hemoglobin Cancelled 06/05/17 12:00 Hemoglobin Interpret Cancelled 06/05/17 12:00 Maternal Rh Cancelled 06/05/17 12:00 Hemoglobin Solubility Cancelled 06/05/17 12:00 Sodium 138 mmol/L (136-145) 06/05/17 06:20 Potassium 4.4 mmol/L (3.5-5.1) 06/05/17 06:20 Chloride 105 mmol/L (98-107) 06/05/17 06:20 Carbon Dioxide 26 mmol/L (21-32) 06/05/17 06:20 Anion Gap 7 (8-16) L 06/05/17 06:20 BUN 9 mg/dL (7-18) 06/05/17 06:20 Creatinine 0.9 mg/dL (0.55-1.02) 06/05/17 06:20 Creat Clearance w eGFR > 60 (>60) 06/05/17 06:20 Random Glucose 85 mg/dL (74-106) 06/05/17 06:20 Calcium 8.4 mg/dL (8.5-10.1) L 06/05/17 06:20 Total Bilirubin 0.7 mg/dL (0.2-1.0) D 06/05/17 06:20 AST 11 U/L (15-37) L 06/05/17 06:20 ALT 15 U/L (12-78) 06/05/17 06:20 Alkaline Phosphatase 64 U/L (45-117) 06/05/17 06:20 Total Protein 7.9 g/dl (6.4-8.2) 06/05/17 06:20 Albumin 4.0 g/dl (3.4-5.0) 06/05/17 06:20 Urine Color Yellow 06/04/17 21:00 Urine Appearance Turbid 06/04/17 21:00 Urine pH 5.0 (5.0-8.0) 06/04/17 21:00 Ur Specific [place] 1.029 (1.001-1.035) 06/04/17 21:00 Urine Protein 1+ (NEGATIVE) H 06/04/17 21:00 Urine Glucose (UA) Negative (NEGATIVE) 06/04/17 21:00 Urine Ketones Trace (NEGATIVE) H 06/04/17 21:00 Urine Blood 3+ (NEGATIVE) H 06/04/17 21:00 Urine Nitrite Negative (NEGATIVE) 06/04/17 21:00 Urine Bilirubin Negative (NEGATIVE) 06/04/17 21:00 Urine Urobilinogen 2.0 mg/dL (0.2-1.0) H 06/04/17 21:00 Ur Leukocyte Esterase 1+ (NEGATIVE) H 06/04/17 21:00 Urine WBC (Auto) 20 /hpf (3-5) 06/04/17 21:00 Urine RBC (Auto) 26 /hpf (0-3) 06/04/17 21:00 Ur Epithelial Cells Rare /HPF (FEW) 06/04/17 21:00 Urine Mucus Rare 06/04/17 21:00 RPR Titer Nonreactive (NONREACTIVE) 06/05/17 06:20 LAB NOTED - Treatment Hospital Course: Detox Protocol Followed, Detoxed Safely, Responded well, Discharged Condition Good, Rehab Referral Accepted Patient has Accepted a Rehab Referral to: [facility] - Medication Discharge Medications: Ambulatory Orders Norethindrone-E.estradiol-Iron [Junel Fe 1.5 mg-30 Mcg Tablet] 1 each PO DAILY 06/04/17 - Diagnosis (1) Opioid dependence with withdrawal Status: Acute - AMA Did Patient Leave Against Medical Advice: No
[2017-06-09 14:13] LABS: HGB SOLUBILITY Positive (Negative); Hgb A 73.2 % (96.4-98.8); Hgb C 0 % (0.0); Hgb F 0 % (0.0-2.0); Hgb S 23.8 % (0.0)
== END 2017-06-09 06:00 | disposition home or self-care (01) | DRG 773 ==
LOC: YASAS 11:11 → Y6N 15:06
PROVIDERS: ADMIT Internal Medicine; ATTEND Internal Medicine
PROC: HZ2ZZZZ Detoxification Services for Substance Abuse Treatment (ICD-10-PCS; principal; 2017-06-04)
DX: F11.23 Opioid dependence with withdrawal (principal); F17.210 Nicotine dependence, cigarettes, uncomplicated; D64.9 Anemia, unspecified; E66.9 Obesity, unspecified; Z68.41 Body mass index [BMI] 40.0-44.9, adult
CPT/HCPCS: 36415; 80053; 81003; 81015; 83021; 85027; 85660; 86593; 93005; 93010